=== PATIENT | male | born 1980 | race Caucasian/White ===

== ENCOUNTER → 2024-02-11 | Outpatient (CLI) | payer OTHER ==
[~2024-02-11] MED LIST: LEVSOD100 PO; Percocet 5-3251 EACH PO; STELARA90 MG/1 ML SQ; Zofran4 MG PO
[2024-02-11 19:15] LABS: Free Thyroxine 0.73 ng/dL (0.70-1.60)
[2024-02-11 19:18] LABS: Thyroid Stimulating Hormone 2.56 uIU/mL (0.360-4.800)
== END | disposition home or self-care (01) ==
LOC: LAB 17:20 → LAB SHORT 17:20
PROVIDERS: Hospitalist
DX: E03.9 Hypothyroidism, unspecified (principal)
CPT/HCPCS: 84439; 84443

== ENCOUNTER 2025-07-13 08:25 | Day surgery (SDC) | payer OTHER ==
[~2025-07-13] VITALS: Ht 172.7 cm; Wt 109.7 kg
[~2025-07-13 08:25] MED LIST changes: +Lidocaine 1%-Epineph 1:100000 20 ML MDV ONE; +Sodium Bicarb 8.4% 1 MEQ/ML 50 ML Vial ONE
[2025-07-13] MEDS ORDERED: CeFAZolin Sodium 2,000 MG VIAL ONE (08:39)
[2025-07-13] MEDS ORDERED: NS 500 ML IV ONE ×2 (08:39→08:58)
[2025-07-13] MEDS ORDERED: ZESTRIL40 M1 PO (08:47)
[2025-07-13] MEDS ORDERED: ESCI20 PO (08:47)
[2025-07-13] MEDS ORDERED: IBUP200 PO (08:48)
[2025-07-13] MEDS ORDERED: Midazolam HCl 1MG / ML 2ML Vial ONE (08:59)
[2025-07-13] MEDS ORDERED: FentaNYL Citrate 50 MCG/ML 2 ML Injection ONE (09:46)
[2025-07-13] MEDS ORDERED: Ondansetron HCl 2 MG / ML 2ML Vial ONE (09:57)
[2025-07-13] MEDS ORDERED: Dexamethasone Sod Phos 10 MG/ML 1ML VIAL ONE (09:57)
[2025-07-13] MEDS ORDERED: Ketorolac Tromethamine 30mg Vial ONE (09:57)
[2025-07-13 10:59] VITALS: BP 120/80
== END 2025-07-13 11:06 | disposition home or self-care (01) ==
LOC: ORSCSDS 08:25
PROVIDERS: Orthopaedic Surgery
PROC: 01N54ZZ Release Median Nerve, Percutaneous Endoscopic Approach (ICD-10-PCS; principal; 2025-07-13 10:00)
DX: G56.03 Carpal tunnel syndrome, bilateral upper limbs (principal); I10 Essential (primary) hypertension; Z79.899 Other long term (current) drug therapy
CPT/HCPCS: J0690; J1100; J1885; J2250; J2405; J2704; J3010; J7040